=== PATIENT | female | born 1970 | race Caucasian/White ===

== ENCOUNTER 2017-01-12 21:20 | Inpatient (IN) | payer OTHER, MEDICAID ==
[~2017-01-12] VITALS: Ht 152.4 cm; Wt 68.0 kg
[~2017-01-12 21:20] MED LIST: DIPH25CA6 PO; GABA300C PO; GLIP10TA10 PO; HALO10TA PO; HALOPERIDOL DECANOATE IM; LEVO125T2 PO; LORA-303 PO; METF1000 PO; TRAZ300T3 PO; Trazodone PO
[2017-01-13] MEDS ORDERED: Benzocaine-Menthol Lozenge 2/Pkg PO PRN (01:55)
[2017-01-13] MEDS ORDERED: Alum-Mag Hydrox-Simeth 30 mL Suspension PO PRN (01:55)
[2017-01-13] MEDS ORDERED: Magnesium Hydroxide 10 mL Oral Concentration PO PRN (01:55)
--- NOTE | 2017-01-13 02:17 | NUR ---
admit note nursing 11-7 this is a 46 year old female who was brought to [facility] by her caregiver due to increasing psychosis and decompensation. she was medically cleared, evaluated and detained as gravely disabled. has a hx of schizophrenia, bipolar and depression with treatment resistant psychosis. sees dr. choi who has her on the max dose of vraylor for the last month. has hx of multiple hospitalizations and is currently enrolled in the iop program at [facility]. arrived by ambulance at 0100 presenting as frail and needy then demanding and oppositional while responding to internal stimuli. physical assessment- denies any acute medical/physical injury/need and none are apparent. has hypothyroid with tsh of 28.58, type 2 diabetes with bs of 113, asthma, osteoarthritis. unable to complete the admission process or provide any useful information, given room 227, resistant to staff offers of assistance, actively responding to internal stimuli with frequent loud outbursts and need for staff attention to calm. [place]
[2017-01-13] MEDS ORDERED: DIVA500T14 (03:43)
[2017-01-13] MEDS ORDERED: LORA1TAB (03:43)
[2017-01-13] MEDS ORDERED: METF1000 (03:43)
[2017-01-13] MEDS ORDERED: NORINYL (03:43)
[2017-01-13] MEDS ORDERED: TRAZ-118 (03:43)
[2017-01-13] MEDS ORDERED: GLIP5TAB26 (03:43)
[2017-01-13] MEDS ORDERED: LEVO137T24 (03:43)
[2017-01-13] MEDS ORDERED: OMEP20CA11 (03:43)
[2017-01-13] MEDS ORDERED: HYDR-656 (03:43)
[2017-01-13] MEDS ORDERED: CARI6CAP (03:43)
--- NOTE | 2017-01-13 04:20 | NUR ---
ADMIT/Noc Obs Pt arrived to unit via ems. Pt unable to sign paperwork. Appears disorganized, delusional, and unable to follow tasks well. Reporting AH/VH. Pt did not sleep at all. Observed Q15 as ordered.
[2017-01-13] MEDS: Pantoprazole 20 mg ER24 Tablet PO SCH (08:48)
[2017-01-13] MEDS: LORazepam 1 mg Tablet PO PRN ×3 (08:49→17:06)
[2017-01-13 10:08] VITALS: BP 108/69; PULSE 93; RESP 16
[2017-01-13] MEDS ORDERED: Haloperidol 5 mg/mL Inj IM ONE (13:42)
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
--- NOTE | 2017-01-13 17:06 | NUR ---
Nurses PRN Patient received Ativan 1mg for agitation and anxiety,will assess response.
--- NOTE | 2017-01-13 17:45 | NUR ---
Nurses Medication Held Metformin 1000mg held at dinner due to BS =109 and patient ate but a few spoons of potatoe and carrots.
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
[2017-01-13] MEDS: ETHINYL ESTRADIOL PO SCH (20:37)
[2017-01-13] MEDS: [UNRECOGNIZED DRUG - OTHER] PO SCH (20:37)
[2017-01-13] MEDS: NORETHINDRONE PO SCH (20:37)
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
[2017-01-13] MEDS: Divalproex (QD) 500 mg ER24 Tablet PO SCH (21:00)
--- NOTE | 2017-01-14 00:14 | NUR ---
Observations 1900 to 0700 Pt did not attend wrap up group. Pt did not eat a snack. Pt has been asleep in bed since start of shift and did not wake when RN were to pass meds. Pt respirations were observed when asleep. Staff completed 15 min close observations as ordered.
--- NOTE | 2017-01-14 04:47 | NUR ---
Nursing Noc Pt noted to be asleep throughout the night. Awoke patient to take HS medications. Pt sat up took medications as prescribed then asked to be covered back up. Continuing to monitor mood, behavior and emotional state. Q15 minute safety checks performed as ordered. CP
[2017-01-14 08:21] LABS: BASOPHILS % (AUTO) 0.2 % (0-3); EOSINOPHILS % (AUTO) 1.7 % (0-5); MONOCYTES % (AUTO) 4.8 % (4-12); Mean Corpuscular Hemoglobin 32.6 pg (27.0-35.0); Mean Corpuscular Volume 92.4 fL (81-100); NEUTROPHILS % (AUTO) 45.5 % (40-74); Platelet Count 309 bil/L (150-400)
[2017-01-14] MEDS: Pantoprazole 20 mg ER24 Tablet PO SCH (08:33)
--- NOTE | 2017-01-14 11:47 | NUR ---
nursing; Pt continues disorganized, confused, standing and staring, following other patients around, or making bizarre statements. Is able to track intermittently. Spend half the shift in her room. She went to her court hearing and agreed to the day. When we got ready to set her up for a shower, she demanded that I get the water going for her and while I was doing that, she closed the door on me and went to her room. Her am BG was 131. Addendum: 01/14/17 at 1233 by FARHAT TELLO RN 1230: Put the call light on in her room and when I went down there, "Did you call for help?"(she stands frozen facing the wall)'Yes, they made me stay here and hold this cup(no cup); go around the bed and take it from me;" She handed it to me. "Now can I lay down?" Addendum: 01/14/17 at 1424 by FARHAT TELLO RN 1400: Raheem Katbrennan, pt 'caregiver and scrubber operator' here and since he came from [facility] was allowed to visit outside visiting hours. Pt brightened and hugged him on arrival and they seemed to be interacting well.He stayed for about 20 minutes.When I asked her about the visit:"He's my caregiver. It's a secret."(?)He says when her medication is right she does pretty good. ordered Haldol Deconate and she allowed this without problem(At first, when told it was to help with her voices; 'Do you swear? Well then give it out here in front of everyone.") Is currently standing in the mensah with her arms outstretched looking at the door."
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
[2017-01-14] MEDS ORDERED: Haloperidol Decanoate 50 mg/mL Inj IM ONE (13:10)
--- NOTE | 2017-01-14 18:12 | NUR ---
[facility] Day Shift Pt has some difficulty maintaining behavioral control throughout the shift. Pt affect appears labile, occasionally blunt. Pt spends a lot of her time aimlessly wandering the unit, internally preoccupied and engaging in bizarre physicality. Pt appears to have a limited control over her bowel and urinary function. Pt is redirectable, but only with firm prompting. Pt has not been able to actively participate in unit activities or interact appropriately with peers when active on the unit. Pt has attended all meals, but has only eaten approx 5% of each meal.
--- NOTE | 2017-01-14 18:39 | NUR ---
Program Engineer/Counselor: S: "I like your jacket." O: Patient slept 9 hours last night per staff. Patient denies S/I and H/I. She also denies auditory and visual hallucinations, however, she still spoke to "other" voices during the interview. Depression and anxiety were not rated. Patient had a bowel movement in the middle of the hallway and then appeared to be catatonic. A: Patient is cooperative, anxious, sobbing, delusional, paranoid, psychotic, no insight, no judgment. P: Follow the care plan, coordinate with out-patient providers, monitor behavior.
[2017-01-14 18:47] VITALS: BP 100/75; PULSE 108; RESP 16
[2017-01-14] MEDS: LORazepam 1 mg Tablet PO PRN (19:51)
[2017-01-14] MEDS: [UNRECOGNIZED DRUG - OTHER] PO SCH (19:52)
[2017-01-14] MEDS: Divalproex (QD) 500 mg ER24 Tablet PO SCH (19:52)
[2017-01-14] MEDS: ETHINYL ESTRADIOL PO SCH (19:52)
[2017-01-14] MEDS: NORETHINDRONE PO SCH (19:52)
--- NOTE | 2017-01-14 22:51 | NUR ---
NURSING NOTE [id number] Mood: unable to provide mood statement Affect: internally preoccupied, bizarre Behavior: at start of shift, the pt. was visualized standing in the hallway outside her room, pants pulled down and defecating on the floor. Pt. was redirected to the shower, where she stood motionless w/eyes closed and unable to clean herself without this production underwriter's assistance. No further episodes of defecation. Pt. refused to wear a brief and insisted she be allowed to wear it on the outside of her pants. Pt. intermittently slumped to the floor out in the hallway or by the nurse's station, sitting on floor w/eyes closed and needing encouragement from staff to stand up. Pt. redirectable w/encouragement. Pt. med compliant but needed encouragement. Thought processes: paranoid, disorganized, responding to internal stimuli. Did not answer when asked about SI.
[2017-01-15] MEDS: LORazepam 1 mg Tablet PO PRN ×3 (05:38→23:53)
--- NOTE | 2017-01-15 05:56 | NUR ---
Night Nurse Note [id number]: Pt was in bed at the beginning of the shift. Pt got up a few times, but was easily redirected back to bed, and slept most of the night, 5.25 hrs. Pt asked for breakfast at 0550 and when she was told breakfast is at 0800, she said, Im not going back in that room. Pt monitored q15 min for safety, location and accountability.
[2017-01-15] MEDS: Pantoprazole 20 mg ER24 Tablet PO SCH (08:31)
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
--- NOTE | 2017-01-15 13:00 | PROG NOTE ---
[address] [address] PROGRESS NOTE PATIENT: JOSE MANUEL GANT : 1970 MR#: [id number] ADMIT: 01/13/2017 JOB ID: [id number] DATE: 01/15/2017 CHIEF COMPLAINT: "They gave me that shot yesterday." HISTORY OF PRESENT ILLNESS: As stated above, the patient did review her current history. I have reviewed documentation completed by Dr. Preciado and additional staff notation. The patient reportedly has a long-term history of schizoaffective disorder and was admitted on a 72-hour hold with status of grave disability. The patient reportedly identified that she did receive an injection of Haldol decanoate yesterday and denied any evidence of current distress. She continues to be somewhat hesitant on approach, some paucity of responses, appears to be experiencing difficulties with internal stimulus, and identified that she believes that people are following her even on the unit. She indicated that she feels unsafe in the hospital but I did inform her that the doors are locked and that no one can enter in. OBJECTIVE: On mental status exam, the patient is quite paranoid. She has visual tracking throughout the course of conversation. She is loose and disorganized and openly identifies significant delusions that she believes individuals are tracking her in the hospital. She did have a paucity of response. The patient made intermittent eye contact as noted. Her speech is hesitant and guarded. She is quite disheveled on contact. Her mood is neutral. Affect is guarded to blunted. Her thought process shows evidence of random flight of ideas, loose and disorganized thinking. She evidently has had episodes of inappropriate control of her feces and notably defecated on the floor per staff report within the past 24 hours. She identifies the above delusions. She appears to be wandering on the unit throughout the course of the hurricane tracker hours. She was alert, disoriented to time, place, situation. Her attention and concentration are poor. PHYSICAL EXAMINATION: Vital signs are current: Temperature is 36.7, pulse 108, respirations 16, BP 100/75. MEDICATION REVIEW: Includes trazodone 100 mg q.h.s., Depakote 1000 mg q.h.s., Haldol 10 mg b.i.d., glipizide 10 mg daily, metformin 1000 b.i.d., Synthroid 150 mcg daily, Protonix 20 mg daily, and she did receive her first dose administration of Haldol Decanoate 100 mg yesterday. ASSESSMENT: [place] I: Schizoaffective disorder, bipolar type. Most recent episode mixed, with psychotic features. [place] II: Deferred. [place] III: History of type 2 diabetes, diabetic neuropathy, history of hypothyroidism, history of gastroesophageal reflux. [place] IV: Stressors are noted for chronic mental illness, limited social support, poor self care. [place] V: Global Assessment of Functioning of current 25. PLAN: 1. Recommendations for continuation of all medications noted with plan and intent to titrate Depakote further. 2. Recommendations for pursuit of a 14-day order. 3. Continuation of staff support as noted.
[2017-01-15 16:29] VITALS: BP 122/95; PULSE 20; RESP 20
--- NOTE | 2017-01-15 18:00 | NUR ---
Elevator Constructor/Counselor S/O: Patient would only reply with "I"m not good", and walk away. A: Patient is uncooperative, paranoid, disheveled, no insight, no judgment, delusional. P:Follow care plan and coordinate with outpatient providers.
--- NOTE | 2017-01-15 18:32 | NUR ---
Observations 0700 - 1900 Pt affect and mood delusional, preoccupied, bizarre and lost. Pt was in and out of his room most of the shift, wandering the hallway, looking out windows and was stating that everyone was smoking and she didn't get to. Pt kept repeating that david was in her room and she needed to get out. Pt was pleasant, friendly, polite and cooperative when approached. Pt attended meals in D.R. and ate 100% of breakfast, 75% of lunch. Pt ate snacks. Pt was observed every 15 minutes through the shift as ordered.
[2017-01-15] MEDS: Divalproex (QD) 500 mg ER24 Tablet PO SCH (20:39)
[2017-01-15] MEDS: [UNRECOGNIZED DRUG - OTHER] PO SCH (20:40)
[2017-01-15] MEDS: ETHINYL ESTRADIOL PO SCH (20:40)
[2017-01-15] MEDS: NORETHINDRONE PO SCH (20:40)
--- NOTE | 2017-01-15 22:48 | NUR ---
NURSING NOTE [id number] Mood: "I have a lot on my mind... I've got my mind straight" Affect: paranoid, labile Behavior: pt. spent time out on the patio, visible in DR, mostly keeping to herself and not interacting much w/peers. No episodes of slumping to the ground like she had yesterday. Dinner FSBS 151. Thought processes: paranoid, experiencing visual and auditory hallucinations. Pt's VH this evening was a woman she calls "Jairo" out on the patio. Pt. kept asking this insurance underwriter to accompany her out on the patio to look at this unseen "Jairo", a woman whom she claimed was smoking. She pointed and whispered to an area on the patio where no people were. She then began to cry because she was not allowed to smoke out on the patio but "Jairo gets to smoke." Pt. also endorsed AH; stating she was hearing voices from the "[employer]". Pt. denied SI.
--- NOTE | 2017-01-16 06:10 | NUR ---
Nursing Note Water Mangle Tender 11pm-7am Patient in room asleep at start of shift. She awoke at 2345 and came to nurses station with her blanket covering her head. She requested and was given prn Ativan 1 mg and Haldol 5 mg with good effect. She was noted to be asleep at 0015 and through the rest of the night. Pt monitored q 15 minutes for safety, location and accountability. Addendum: 01/16/17 at 0707 by IVETTE CADENA RN Medication Patient to medication room, "I need my medications, give everything". Pt reporting the voices are loud outside of her head. Medicated with Lorazepam and Haldol. Continuing to monitor.
[2017-01-16] MEDS: LORazepam 1 mg Tablet PO PRN ×2 (07:00→18:16)
[2017-01-16] MEDS: Pantoprazole 20 mg ER24 Tablet PO SCH (08:36)
--- NOTE | 2017-01-16 14:31 | NUR ---
NURSE NOTE DAY Mood: Lethargic, irritable at times. Affect: Flat. Thought Process/Content: "I have Jairo inside of me . . . they're telling me they're going to kill me." Endorses AH. Behavior: Isolated/sleeping in room much of shift. Up for meals. PRNs/NURS: Given PRN haloperidol 5mg at 0700. Withheld scheduled haloperidol 10mg until 0930 due to sedation. Administered haloperidol 5 mg at 0930 and 5 mg at 1200. BG 131 at breakfast.
--- NOTE | 2017-01-16 14:34 | PROG NOTE ---
[address] [address] PROGRESS NOTE PATIENT: JOSE MANUEL GANT : 1970 MR#: [id number] ADMIT: 01/13/2017 JOB ID: [id number] DATE: 01/16/2017 CHIEF COMPLAINT: "What do I need to do to get out of here." This is per patient report. HISTORY OF PRESENT ILLNESS: As stated above, the patient was seen in her room lying in the bed, covered up her head with a blanket. She indicated that she just wants to leave the hospital and states that she really does not like being here. She reportedly has been cooperative with medication management per nursing staff report and is currently maintained on doses of Depakote, Haldol, and additional doses of Synthroid and metformin. OBJECTIVE: On mental status exam, she was cooperative, polite. She did smile appropriately in discussing her current status and her desire to be discharged. Her speech is of normal tone, frequency, and volume. Her mood was neutral. Her affect was blunted. Her thought process shows no evidence of random flight of ideas. She appears to be loose and disorganized. Needs redirection at times. She has had no further episodes of inappropriate control of her bowels over the past 24 hours. Her mood is neutral. Affect was congruent. Her thought process shows evidence of loose and disorganized thinking, as noted. Her thought content, she denied any evidence of current suicidal, homicidal ideation. No evidence of active hallucinations, delusions. She was alert, oriented to person, place, time, situation. Her attention and concentration are poor. PHYSICAL EXAM: Vital signs, current: Temperature is 36.8, pulse unlisted, respirations 20, BP 122/95. CURRENT MEDICATIONS: Include: 1. Doses of Haldol 5 mg p.r.n. q.4 h. as well as scheduled 10 mg b.i.d. 2. Depakote 1000 mg q.h.s. 3. Trazodone 100 mg q.h.s. 4. Glipizide 10 mg daily. 5. Metformin 1000 mg b.i.d. 6. Synthroid 150 mcg daily. 7. Protonix 20 mg daily. LABORATORY DATA COLLECTED: Her Depakote level was noted at 56 on January 14, which was Tuesday. Haldol level is pending at this time. TSH was elevated at 17.3. Free T4 at 1.09, within normal limits. ALT was noted elevated at 42 and glucose 131. ASSESSMENT: [place] I. Schizoaffective disorder, bipolar type. [place] II. Deferred. [place] III. 1. History of type 2 diabetes. 2. Diabetic neuropathy. 3. History of hypothyroidism with replacement. 4. Gastroesophageal reflux. [place] IV. Stressors are noted for chronic mental illness, limited social support, poor self-care. [place] V. Global Assessment of Functioning current 25. PLAN: 1. Recommendations for further titration of Depakote to 1500 mg q.h.s., based on her current levels. 2. Recommendations for continuation of Haldol 10 mg b.i.d. 3. Recommendations for pursuit of LR 90 with discharge on Tuesday for continuation of outpatient management.
--- NOTE | 2017-01-16 15:09 | NUR ---
Inner Tube Cutter/Counselor S:"These are my fingers." O: Patient did not rate SI or HI, auditory or visual hallucinations, or anxiety or depression. A:Patient confused, disorganized, no insight, no judgment, paranoid. Patient states that she sees other patients smoking and she's not allowed to. P:Follow care plan and coordinate with outpatient providers.
--- NOTE | 2017-01-16 17:35 | NUR ---
[facility] Day Shift Pt has some difficulty maintaining behavioral control throughout the shift. though not as much as observed on previous shift.. Pt affect appears labile, occasionally blunt. Pt spends a lot of her time aimlessly wandering the unit, internally preoccupied and engaging in bizarre physicality. Pt is redirectable, but only with firm prompting. Pt has not been able to actively participate in unit activities or interact appropriately with peers when active on the unit. Pt has attended all meals, but has only eaten approx 10% of each meal.
[2017-01-16 17:54] VITALS: BP 108/75; PULSE 90; RESP 18
[2017-01-16] MEDS: Divalproex (QD) 500 mg ER24 Tablet PO SCH (20:54)
[2017-01-16] MEDS: [UNRECOGNIZED DRUG - OTHER] PO SCH (20:57)
[2017-01-16] MEDS: ETHINYL ESTRADIOL PO SCH (20:57)
[2017-01-16] MEDS: NORETHINDRONE PO SCH (20:57)
--- NOTE | 2017-01-16 22:13 | NUR ---
NURSING NOTE [id number] Mood: "There's glass in my toe!!" *sobs without tears* Affect: distracted, dramatic at times Behavior: pt. spent time out on the patio this evening, also often visible in the DR sitting by herself, staring out the windows. Limited interaction w/peers. Continues to engage in bizarre behaviors, e.g. took her scrub pants off in the hallway by the laundry room and continued to walk down the mensah to her room wearing only a brief. Pt. occasionally demands assistance w/some of her ADLs despite being able to perform them independently at other times during the day. Pt. requested medication as she reported a commercial on the television had upset her. Pt. given PRN Haldol 5 mg and Ativan 1 mg @ 1800. She threw a box of tissues at a peer, H.S., and told this speech writer afterward that it was because "she didnt listen to me" and then apologized. Pt. was moved to the opposite wing into 230 for closer monitoring near and to separate her from other pt. rooms. Thought processes: continues to endorse AH and VH, specifically a woman she calls "Jairo" telling her to perform certain actions, e.g. taking her pants off in the hallway. Expressed delusional thought content. Not endorsing SI but unable to answer when asked re:safety.
[2017-01-17] MEDS: LORazepam 1 mg Tablet PO PRN (00:28)
--- NOTE | 2017-01-17 06:23 | NUR ---
Nursing Note Satellite Installation Technician Patient given HS meds in room. She questioned which medications she was given, stating "if this Trazodone doesn't work, I'm suing you. Are you sure this is the real deal?" Later, patient came to dining room with complaints of "Jaylene" being in her room. Was easily redirected and staff assured her that she was safe in her room. Patient continues to have paranoid, disorganized thought processes. Patient returned to room and was noted to be asleep at 0100 and through the rest of the night. Pt monitored q15 minutes for safety, location and accountability.
[2017-01-17] MEDS: Pantoprazole 20 mg ER24 Tablet PO SCH (09:15)
[2017-01-17 10:23] VITALS: BP 113/82; PULSE 85; RESP 16
[2017-01-17] MEDS ORDERED: Haloperidol Decanoate 50 mg/mL Inj IM ONE (12:50)
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
--- NOTE | 2017-01-17 14:37 | NUR ---
Nursing Days Pt presents as irritable, labile and paranoid. She was tearful talking on the phone and then began sobbing saying "I can't smoke, I can't smoke!" Then told staff "Don't you f*cking wake me up!" Pt remains disorganized and tangential. Refused her morning blood glucose check stating "No thank you. I will let my doctor do it." Pt did accept her scheduled po medications and eating meals.
--- NOTE | 2017-01-17 14:56 | NUR ---
pt has been pacing in hallway. Standing and staring at other patients crying at times then isolates to her room
--- NOTE | 2017-01-17 16:30 | NUR ---
Director Stage/Counselor S:"I want to be left alone!" O: Patient refused to continue interview with this radio script writer. A:Patient has been uncooperative, secluding herself to her room. Blunted affect, no insight. P: Follow care plan and coordinate with outpatient providers.
[2017-01-17] MEDS: ETHINYL ESTRADIOL PO SCH (20:14)
[2017-01-17] MEDS: NORETHINDRONE PO SCH (20:14)
[2017-01-17] MEDS: [UNRECOGNIZED DRUG - OTHER] PO SCH (20:14)
[2017-01-17] MEDS: Divalproex (QD) 500 mg ER24 Tablet PO SCH (20:14)
--- NOTE | 2017-01-17 23:11 | NUR ---
Evening Nurse Note [id number]: Pt has been walking around the milieu throughout the shift. Pt responds to internal stimuli and , VH, sometimes telling staff to take or remove items that are dangerous such as the food cart and her socks. Pt has been upset that she cannot smoke on the unit, but refuses a nicotine lozenge. Pt became visibly upset when she asked for a tissue for her nose, then yelled at this ad copy writer for touching her tissue, when it was handed to her. Pt continued to yell at this ad copy writer, following until another staff interjected. Pt had just a few more outbursts through the evening, then went to bed after snack. Pt monitored q15 min for safety, location and accountability.
--- NOTE | 2017-01-18 04:39 | NUR ---
Nursing Note Internal Control Specialist 11pm to 7am Despite receiving trazadone 100mg, Zyprexa 10mg prn and Vistaril 50mg prn before bed, pt was up the majority of the night, paranoid and delusional, fearful of being alone in her room, There is someone in there trying to get me. Allowed pt to use day room as bed area where she could be closer to the nurses station. Pt responding to internal stimuli, agitated, loud and pacing the unit. T/C to Dr. Mei at 0115 and obtained an additional 1 x dose of trazadone 100mg for insomnia. Pt took medication but remained awake for several hours but in better behavioral control. Pt went to sleep at approx. 0400. Monitored pt with q 15 minutes for safety, location and accountability.
[2017-01-18] MEDS: Pantoprazole 20 mg ER24 Tablet PO SCH (07:45)
--- NOTE | 2017-01-18 13:09 | NUR ---
Nursing Days Pt continues paranoid, delusional, responding to both visual and auditory hallucinations. Stating "Why did you sneak up behind me? They are chasing me. They are pulling my hair." She took all scheduled medication and a OT order of Haldol 10mg po & Cogentin 1mg po for agitation/psychosis. She also received Vistaril 50mg po prn @ 0840 for felt anxiety with minimal effect. Morning BG 113.
--- NOTE | 2017-01-18 13:25 | PROG NOTE ---
[address] [address] PROGRESS NOTE PATIENT: JOSE MANUEL GANT : 1970 MR#: [id number] ADMIT: 01/13/2017 JOB ID: [id number] DATE: 01/18/2017 CHIEF COMPLAINT: "There was someone in there, did you just see that pig walk by?" HISTORY OF PRESENT ILLNESS: As stated above, the patient reportedly stated that she continues to struggle with auditory and visual hallucinations. She reportedly was given additional doses of trazodone last evening due to significant difficulties with elevated and aggressive behaviors. She reportedly refused to sleep despite p.r.n. doses of Zyprexa, Vistaril, and trazodone. In review of her current status I have agreed to titrate her doses of Haldol further to 20 mg b.i.d. and also encouraged to staff to utilize the p.r.n. doses of Zyprexa. OBJECTIVE: On mental status exam, she was seen pacing the unit. She shows significant irritability, paranoia, active hallucinations, responding to internal stimulus. Her speech is pressured. Her mood is dysphoric. Her affect is elevated. Her thought process shows evidence of racing thoughts, flight of ideas, loose and disconnected thinking. Her thought content: She denied any evidence of current suicidal, homicidal ideation. She is quite paranoid, actively hallucinating, delusional. She was alert, oriented to time and place. Attention and concentration poor. Insight and judgment are poor. PHYSICAL EXAMINATION: Vital signs are current: Temperature is 36.4, pulse 85, respirations 16, BP 113/82. MEDICATION REVIEW: Includes Haldol 10 mg b.i.d. She did receive Haldol Decanoate 50 mg yesterday, p.r.n. doses of Zyprexa 10 mg p.o. or IM q.6 hours, Depakote 1500 mg q.h.s., trazodone she did receive 200 mg q.h.s., glipizide 10 mg daily, metformin 1000 mg b.i.d., Synthroid 150 mcg daily. ASSESSMENT: [place] I: Schizoaffective disorder, bipolar type. [place] II: Deferred. [place] III: 1. History of type 2 diabetes. 2. Diabetic neuropathy. 3. History of hypothyroidism with replacement. [place] IV: Stressors are noted for chronic mental illness, limited social support. [place] V: Global Assessment of Functioning of current 25. PLAN: 1. Recommendations for titration of Haldol to 20 mg b.i.d. 2. Institution of scheduled Cogentin 1 mg p.o. or IM b.i.d. 3. Continuation of p.r.n. doses of Zyprexa, Vistaril. 4. Continuation of trazodone with increased doses to 200 mg q.h.s. 5. Continuation of Haldol Decanoate monthly injections. 6. Continuation of MR 14 as noted.
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
--- NOTE | 2017-01-18 18:10 | NUR ---
Obs Dayshift Pt is delusional, restless, pressured speech, irritable, pacing the unit, not able to follow staff directions. Pt was able to lay in bed and nap for approx 15 to 20 min. Pt has VH and AH, refusing ear plugs and not able to focus on any distraction therapies. Pt states that she is scared of her room, she has been placed in multi different room to attempt to make her less paranoid with no success. Pt made many phone calls to the same number today. Random outbursts of laughing, then yelling, and threatening unseen others. Poor ADL's, Good meals
[2017-01-18] MEDS: Divalproex (QD) 500 mg ER24 Tablet PO SCH (20:15)
[2017-01-18] MEDS: ETHINYL ESTRADIOL PO SCH (20:16)
[2017-01-18] MEDS: [UNRECOGNIZED DRUG - OTHER] PO SCH (20:16)
[2017-01-18] MEDS: NORETHINDRONE PO SCH (20:16)
[2017-01-18] MEDS: Benztropine 1 mg/mL 2 mL Inj IM SCH (20:30)
--- NOTE | 2017-01-18 21:40 | NUR ---
Evening Nurse Note: Pt has been walking around the milieu throughout the shift. Pt is still responding to internal stimuli and hallucinations, and seeks out staff for frequent requests, but is able to be redirected. Pt has been med compliant except for BG checks and taking her metformin on this shift, yelling at staff to get away from her and that she will not take that medication. Pt has laid down in bed a few times for short periods, keeping the lights on. Pt monitored q15 min for location, safety and accountability.
--- NOTE | 2017-01-19 01:37 | NUR ---
Observations 1900 to 0700 Pt ate a snack. Pts affect is paranoid, guarded. Pt randomly starts yelling at times and complains of seeing things and people going into room. Pt is able to be redirected. Pt appeared asleep at 2330 and has remained asleep. Pt respirations were observed when asleep. Staff completed 15 min close observations as ordered.
--- NOTE | 2017-01-19 06:35 | NUR ---
Nursing Note Quality Control Microbiologist 11pm-7am Patient in room asleep at start of shift. She was noted to be asleep from [id number], when she awoke and requested that staff watch her "go to the bathroom because I feel like I'm going to fall in." She returned to bed and was noted to be asleep at 0330 and through the rest of the night. Pt monitored q 15 minutes for safety, location and accountability.
[2017-01-19] MEDS: Pantoprazole 20 mg ER24 Tablet PO SCH (07:55)
[2017-01-19] MEDS: Benztropine 1 mg/mL 2 mL Inj IM SCH ×2 (08:30→20:30)
[2017-01-19 10:01] VITALS: BP 109/78; PULSE 77; RESP 18
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
--- NOTE | 2017-01-19 19:38 | NUR ---
Observations 899 - 2129 Pt affect and mood delusional, preoccupied, scattered, bizarre and lost. Pt was in and out of her room most of the shift, wandering the hallway, looking out windows and crying but no tears are coming out. Pt continues stating that everyone was smoking and she didn't get to. Pt was pleasant, polite and cooperative when approached. Pt attended meals in D.R. and ate 100% of breakfast, 75% of lunch and 75% of dinner. Pt ate snacks. Pt had a visitor and it appeared to go well. Pt yelled at staff and peers a few times but was able to be redirected. Pt declined to set a daily goal and declined to participate in unit activities. Pt was observed every 15 minutes through the shift as ordered.
[2017-01-19] MEDS: Divalproex (QD) 500 mg ER24 Tablet PO SCH (19:39)
[2017-01-19] MEDS: [UNRECOGNIZED DRUG - OTHER] PO SCH (19:41)
[2017-01-19] MEDS: ETHINYL ESTRADIOL PO SCH (19:41)
[2017-01-19] MEDS: NORETHINDRONE PO SCH (19:41)
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
--- NOTE | 2017-01-20 05:47 | NUR ---
Nursing Note Tensile Tester 9pm-7am Patient in room asleep at start of shift. She was noted to be asleep from 0507-8406, when she awoke and came out in hallway. Patient appeared unsteady on her feet, so staff assisted her back to her bed. She was noted to be asleep at 0200 and through the rest of the night. Pt monitored q 15 minutes for safety, location and accountability.
[2017-01-20] MEDS: Pantoprazole 20 mg ER24 Tablet PO SCH (07:45)
[2017-01-20] MEDS: Benztropine 1 mg/mL 2 mL Inj IM SCH (07:52)
[2017-01-20 08:53] LABS: Bilirubin, Direct 0.2 mg/dL (0.0-0.3)
[2017-01-20] MEDS: Lactulose 20 Gm/30 mL 30 mL Syrup PO SCH (10:40)
[2017-01-20] MEDS ORDERED: Benztropine 1 mg/mL 2 mL Inj IM PRN (10:47)
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
[2017-01-20 19:03] VITALS: BP 95/65; PULSE 66; RESP 16
[2017-01-20] MEDS: Divalproex (QD) 500 mg ER24 Tablet PO SCH (20:09)
[2017-01-20] MEDS: NORETHINDRONE PO SCH (20:10)
[2017-01-20] MEDS: [UNRECOGNIZED DRUG - OTHER] PO SCH (20:10)
[2017-01-20] MEDS: ETHINYL ESTRADIOL PO SCH (20:10)
--- NOTE | 2017-01-20 20:27 | NUR ---
Observations 00 - 0 Pt affect and mood delusional, preoccupied, confused, agitated at times and upset. Pt was in and out of her room most of the shift, wandering the hallway, looking out windows and getting fresh air on the patio. Pt was pleasant, friendly, polite and cooperative when approached for the most part. Pt attended meals in D.R. and ate about 75% of her meals. Pt ate snack. Pt attempted to take a shower but she stated that she got scared. Pt was observed every 15 minutes through the shift as ordered.
--- NOTE | 2017-01-21 05:36 | NUR ---
Nursing Noc [id number] Pt noted to have broken sleep this shift. Up wandering hallway at 0320. When offered help pt responded that she was looking for the bathroom. Redirected patient to room and bathroom and patient was noted to perform her ADLs and return to bed. Continuing to monitor behavior and emotional state. Q15 minute safety checks performed. CP
[2017-01-21] MEDS: Pantoprazole 20 mg ER24 Tablet PO SCH (07:22)
[2017-01-21] MEDS: Lactulose 20 Gm/30 mL 30 mL Syrup PO SCH ×2 (07:53→10:28)
--- NOTE | 2017-01-21 07:54 | NUR ---
PT. REFUSED LACTULOSE Pt. agreed to take most of her a.m. medications as scheduled, including a PRN Vistaril 50 mg for anxiety, but refused scheduled Lactulose stating: "I'm not taking that!" Attempted to educate pt. on why it is important for her to take it but pt. stated: "no that's not true! It's for someone else! I don't need it!"
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
[2017-01-21 14:06] VITALS: BP 105/75; PULSE 70; RESP 16
--- NOTE | 2017-01-21 18:12 | NUR ---
[facility] Day Shift Pt continues to have some difficulty maintaining behavioral control throughout the shift. though not as much as observed on previous shift. Pt affect appears labile, occasionally blunt. Pt spends a lot of her time aimlessly wandering the unit, internally preoccupied and engaging in bizarre physicality. Pt is redirectable, but only with firm prompting. Pt has not been able to actively participate in unit activities or interact appropriately with peers when active on the unit. Pt has attended all meals, but has only eaten approx 10% of each meal.
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
[2017-01-21] MEDS: Divalproex (QD) 500 mg ER24 Tablet PO SCH (19:21)
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
[2017-01-21] MEDS: NORETHINDRONE PO SCH (20:25)
[2017-01-21] MEDS: [UNRECOGNIZED DRUG - OTHER] PO SCH (20:25)
[2017-01-21] MEDS: ETHINYL ESTRADIOL PO SCH (20:25)
--- NOTE | 2017-01-22 04:59 | NUR ---
Nursing Note Vice President Of Software Development 7pm to 7am Pt paced the unit this evening, talking to self, glaring at staff, with angry affect and disgruntled mood. Pt requested meds early this evening stating These people are bothering me. Can I have my meds and go to bed. Pt awake at 0130, requested BP be taken, which was WNL, stating Can you put the alarm on my arm and take my pulse I can feel it trying to come out. Pt has been labile all shift. Fluctuating between her bedroom and dayroom. Making angry demands of staff and accusing staff of plotting against her. Pt received Hydroxyzine 50mg and Zyprexa 10mg at 0400 with little effect. Monitored pt. with q 15 minutes face checks for safety location and accountability
[2017-01-22] MEDS: Pantoprazole 20 mg ER24 Tablet PO SCH (08:00)
[2017-01-22] MEDS: Lactulose 20 Gm/30 mL 30 mL Syrup PO SCH (08:02)
[2017-01-22 09:38] VITALS: BP 103/64; PULSE 73; RESP 18
[2017-01-22] MEDS ORDERED: .Epic Conversion Completed XX PRN (12:25)
--- NOTE | 2017-01-22 14:11 | PCM.PNPSY ---
Subjective Date of Service Jan 22, 2017 Subjective The patient reported that she was "doing fine" and would like to be discharged today. The patient reported seeing bugs or black spots coming out of the wall and going onto the chair. The patient was concerned about a bruise (likely secondary to venipuncture) and did not recall having a blood draw several days ago. The patient has not been taking lactulose as prescribed and she does not care for the liquid. The patient reported that her voices "changed 3 days ago" and are no longer inside her head but are more outside of her head and not as bothersome and does not associate this with beginning the Trilafon. The patient was later heard yelling at unseen others. On physical examination she had mild cogwheeling. The patient otherwise denied side effects. Sleep: 4.75 hours, "good" Appetite: Reports feeling "full faster" Suicidal and homicidal ideation: Denies Auditory hallucinations: As above Visual hallucinations: As above Other Psychotic Symptoms: Thought disorganization limited insight Anxiety: "Good" 5/10 Depression: 0/10 Current Medications Current Medications Perphenazine 4 mg BID PO Last administered on 01/22/17t 08:03; Admin Dose 4 MG; Start 01/20/17 at 20:30 Mental Status Exam Vital Signs Vital Signs Date Time Temp Pulse Resp B/P Pulse Ox O2 Delivery O2 Flow Rate FiO2 01/22/17 09:38 36.1 73 18 103/64 Appearance: Neat/well groomed Attitude: Pleasant, Cooperative Behavior: Overtly anxious Affect: Well Modulated/Appropriate (with treatment team), Labile (when responding to internal stimuli) Mood: Anxious (mild) Thought Process/Associations: Goal Directed Speech Production: Paucity Speech Rate: Lags/Latency Speech Articulation: Normal Thought Content: Negativistic, Somatic preoccupation, Perseveration Danger to Self/Suicidal Ideati: None Danger to Others: None Delusions: Paranoid (Endorses) Hallucinations: Auditory (Endorses), Visual (Endorses) Consciousness: Alert Orientation: Person, Place, Situation Memory: Short Term Memory (Impaired), Skilled Nursing Memory (Impaired) Estimate Intellectual Function: Average (to), Below Average Attention/Concentration & Cogn: Impaired Insight: Limited Judgement: Limited Mental Health Plan The patient is a 46-year-old female with schizoaffective disorder, who presents with gradual decompensation reportedly following a change of medication. The patient was previously stabilized on haloperidol and haloperidol decanoate without Depakote. The patient's LFTs are slightly elevated and on follow-up appear to be returning to normal. Although elevated, her TSH has reduced and her free T4 is in normal limits. The patient requested and was given an injection of haloperidol due to severe agitation and found it helpful. I spoke with her outpatient provider who did not believe that she responded terribly well to Vraylar or the addition of Depakote. We discussed the fact that she appeared quite well when on haloperidol monotherapy during her last hospital stay but was on a combination of decanoate and oral medication. This would suggest that the patient may be a rapid metabolizer and so a haloperidol level was added to her blood work but she was found to have a held a level of 22 well above the reference range of 10. The patient had her second haloperidol decanoate injection on 01/17/17. The patient was recently started on perphenazine low-dose. This seems to have had some beneficial effect. Despite normal liver function tests, the patient has an elevated ammonia likely due to Depakote. According to the patient's outpatient provider, as noted above, Depakote appears to benefit of little efficacy and so will be discontinued and labs rechecked. [place] I: Schizoaffective disorder, bipolar type. Most recent episode mixed , with psychotic features. [place] II: Deferred. [place] III: History of type 2 diabetes, diabetic neuropathy, history of hypothyroidism, history of gastroesophageal reflux disease. [place] IV: Stressors include chronic mental illness, limited social supports, and poor self care. [place] V: Global Assessment of Functioning 35. Medications Perphenazine 4 mg by mouth twice a day Benztropine 1 mg twice daily Olanzapine 10 mg every 6 hours when necessary severe agitation Hydroxyzine 50 mg 3 times a day for anxiety Gipizide 10 mg daily Metformin 1000 mg twice a day Lactulose 20 g daily Levothyroxine 150 g daily Pantoprazole 20 mg daily Treatments 1. The patient is admitted to [facility] and is provided a safe and secure environment. 2. The patient is currently denying suicidal ideation and has been requesting assistance from staff, and as such is not in need of a one-to-one at this time. 3. The patient will be seen by the treatment team on a daily basis to assess symptoms, side effects, and response to treatment. 4. The patient is encouraged to attend groups and milieu therapy. 5. The patient will be continued on her current medications. 6. Continue current medications except discontinue Depakote. 7. Consider changing perphenazine to oral haloperidol. 8. Recheck CBC, CMP and ammonia levels in the morning. 9. Anticipated length of stay is 2-4 weeks. Kelvin Preciado MD Jan 22, 2017 14:11
--- NOTE | 2017-01-22 16:52 | NUR ---
Observations 0700 to 1900 Pt ate a snack. Pt spends free time pacing unit and randomly barks orders or odd statements at staff. Pts affect is gruff, hostile and paranoid. Pt did maintain behavioral control and easily directable at times. Pt did appear asleep in the afternoon and respirations were observed while asleep. Breakfast: 50%. Lunch: 100%. Staff completed 15 min close observations as ordered.
--- NOTE | 2017-01-22 17:01 | NUR ---
[employer] Operator/Counselor S:" The voices are on the outside, not the inside." O:Patient denies SI and HI, reports that she sees black dots, and that the voices are on the outside. Anxiety is 5/10 and depression is 0/10. A: Patient is cooperative, anxious, sobbing, delusional, paranoid, psychotic, no insight, no judgment. P: Follow care plan, coordinate with outpatient providers, monitor behavior.
--- NOTE | 2017-01-22 17:23 | NUR ---
Nurses PRN Patient received Vistaril 50mg for agitation,hostility and intermittent yelling out,will assess effect. Her BS at [phone] and patient accepted Metformin 1000mg and ate 75% of her dinner.
--- NOTE | 2017-01-22 17:51 | NUR ---
Nursing Notes [id number] S: "I cant sleep, the voices in my room won't let me". "They are there all the time". "I see black spots everywhere I look". "I do not want you to give me that stuff in the brown, you do not make up meds and say I have to take them". O: Patient refusing lactulose. Continues to be irritable, anxious, demanding at times. A: Labile, loudly wailing at times, perseverating. P: Monitor for safety and response to treatment. Follow plan of care. Addendum: 01/22/17 at 1753 by PATRICIA CHU RN Rolando 17:22 Vistaril 50 mg po for anxiety.
[2017-01-22] MEDS: ETHINYL ESTRADIOL PO SCH (20:32)
[2017-01-22] MEDS: NORETHINDRONE PO SCH (20:32)
[2017-01-22] MEDS: [UNRECOGNIZED DRUG - OTHER] PO SCH (20:32)
[2017-01-23] MEDS ORDERED: Multivit-Miner-Folic Acid-Iron Tablet PO SCH (08:30)
== END 2017-01-23 01:30 | disposition admitted as inpatient to this hospital (09) | DRG 951 ==
LOC: MHC 01-13 01:14
PROVIDERS: ADMIT Psychiatry & Neurology Psychiatry; ATTEND Psychiatry & Neurology Psychiatry
DX: R69 Illness, unspecified (principal)